=== PATIENT | female | born 1960 | race Caucasian/White ===

== ENCOUNTER → 2023-06-10 | Outpatient (CLI) | payer OTHER ==
--- NOTE | 2023-06-10 16:19 | Diagnostic Imaging Report ---
PROCEDURE: US Non-ob pelvis comp/trans. INDICATION: Primary Dx Z12.39 ENCOUNTER FOR OTHER SCREENING-PELVIC MASS TECHNIQUE: Multiple real time thompson scale sonographic images were obtained of the pelvis transabdominally and transvaginally. CORRELATION STUDY: None FINDINGS: UTERUS: 5 x 4 x 2.4 cm. The uterus appearing unremarkable. Small cervical nabothian cyst present. ENDOMETRIUM: 0.1 cm. The endometrium is of normal thickness. RIGHT OVARY: 2.3 x 1.1 x 0.8 cm. Unremarkable and with blood flow. LEFT OVARY: 2.5 x 1.4 x 1.0 cm. Unremarkable and with blood flow. No significant free pelvic fluid. IMPRESSION: 1. Unremarkable appearing pelvic ultrasound examination. Dictated by: Dictated on workstation # [id number]
--- NOTE | 2023-06-14 15:57 | Diagnostic Imaging Report ---
INDICATION: Routine screening. COMPARISON: 10/11/2013. TECHNIQUE: 2D and 3D bilateral screening mammography was performed with CAD. FINDINGS: Both breasts are heterogeneously dense, limiting the sensitivity of mammography. The parenchymal pattern is stable. No mass or malignant-appearing microcalcifications are seen. The axillae are unremarkable. IMPRESSION: No mammographic features suspicious for malignancy are identified. ACR BI-RADS Category 1: Negative. Result letter will be mailed to the patient. Note: At least 10% of breast cancer is not imaged by mammography. Dictated by: Dictated on workstation # [id number]
== END ==
LOC: RAD 15:00
PROVIDERS: ATTEND Obstetrics & Gynecology
DX: Z12.31 Encounter for screening mammogram for malignant neoplasm of breast (principal); R19.00 Intra-abdominal and pelvic swelling, mass and lump, unspecified site
CPT/HCPCS: 76830; 76856; 77063; 77067